=== PATIENT | female | born 1985 | race Caucasian/White ===

== ENCOUNTER → 2021-12-26 | Outpatient (CLI) | payer BC, OTHER | LOC: NM 09:00 | DX: R10.11 Right upper quadrant pain (principal); R14.2 Eructation; R93.2 Abnormal findings on diagnostic imaging of liver and biliary tract | CPT/HCPCS: 78227; A9537; J2805 ==

== ENCOUNTER 2022-05-13 00:01 | Emergency (ER) | payer BC, OTHER ==
[2022-05-13] MEDS ORDERED: TORADOL 10 MG T10 MG PO (04:05)
[2022-05-13] MEDS ORDERED: NORFLEX 100 MG100 MG PO (04:05)
== END 2022-05-13 04:31 | disposition home or self-care (01) ==
LOC: ER1 00:01
DX: S70.02XA Contusion of left hip, initial encounter (principal); Z90.49 Acquired absence of other specified parts of digestive tract; W01.198A Fall on same level from slipping, tripping and stumbling with subsequent striking against other object, initial encounter; Y92.814 Boat as the place of occurrence of the external cause
CPT/HCPCS: 72192; 73502; 84703; 96374; 96375; 99284; J1885; J2405

== ENCOUNTER → 2022-06-12 | Outpatient (CLI) | payer BC, OTHER ==
[~2022-06-12] MED LIST: NORFLEX 100 MG100 MG PO; TORADOL 10 MG T10 MG PO
== END ==
LOC: KOH-I 11:00
DX: M25.552 Pain in left hip (principal)
CPT/HCPCS: 73721